=== PATIENT | female | born 1935 | race Hispanic/Latino ===

== ENCOUNTER → 2018-04-06 | Outpatient (CLI) | payer OTHER, MEDICARE ==
[~2018-04-06] MED LIST: AEC81 PO; GLIPIZIDE; INSLAN SQ; INTEGRA; MEFORMIN; PEPTO BISMOL; [UNRECOGNIZED DRUG - OTHER]; cozaar; lipitor; naproxen; nexium; norvasc; prozac; tramadol
== END | disposition home or self-care (01) ==
LOC: RAH 10:05
PROVIDERS: ATTEND Internal Medicine Gastroenterology
DX: R68.81 Early satiety (principal); K30 Functional dyspepsia; R14.0 Abdominal distension (gaseous)
CPT/HCPCS: 78264; A9541

== ENCOUNTER 2018-05-04 08:54 | Day surgery (SDC) | payer OTHER, MEDICARE ==
[~2018-05-04] VITALS: Ht 149.9 cm; Wt 60.7 kg
[~2018-05-04 08:54] MED LIST changes: +AMLO5TAB7 PO; +ATOR20TA65 PO; +ESOM40CA PO; +GLIP1TAB6 PO; -GLIPIZIDE; -INTEGRA; +LOSA50TA2 PO; -MEFORMIN; +MIRT30TA7 PO; +MULT-1296 PO; -PEPTO BISMOL; +SODIUM CHLORIDE 0.9% 1000ML 1,000 ML IV ONE; -[UNRECOGNIZED DRUG - OTHER]; +clobetasol; -cozaar; +iron; -lipitor; -naproxen; -nexium; -norvasc; -prozac; -tramadol
[2018-05-04 09:02] VITALS: BP 119/60
[2018-05-04] MEDS ORDERED: AEC81 PO (09:56)
[2018-05-04] MEDS ORDERED: IRON PO (09:56)
[2018-05-04] MEDS ORDERED: PROPOFOL 10 MG/ML 20ML VIAL IV ONE ×2 (10:37→10:50)
[2018-05-04 11:01] VITALS: BP 159/69
[2018-05-04 11:05] VITALS: BP 162/72
[2018-05-04 11:10] VITALS: BP 167/68
[2018-05-04 11:16] VITALS: BP 156/56
[2018-05-04 11:17] VITALS: BP 152/66
== END 2018-05-04 11:35 | disposition home or self-care (01) ==
LOC: ENDO 08:54 → DAH 08:54 → ENDO 11:35
PROVIDERS: ATTEND Internal Medicine Gastroenterology
DX: K63.5 Polyp of colon (principal); F41.9 Anxiety disorder, unspecified; K64.1 Second degree hemorrhoids; F32.9 Major depressive disorder, single episode, unspecified; E11.9 Type 2 diabetes mellitus without complications; M19.90 Unspecified osteoarthritis, unspecified site; I10 Essential (primary) hypertension; E78.5 Hyperlipidemia, unspecified; Z79.82 Long term (current) use of aspirin; Z79.899 Other long term (current) drug therapy; Z86.73 Personal history of transient ischemic attack (TIA), and cerebral infarction without residual deficits; Z90.710 Acquired absence of both cervix and uterus; Z79.4 Long term (current) use of insulin; Z96.659 Presence of unspecified artificial knee joint; Z88.8 Allergy status to other drugs, medicaments and biological substances
CPT/HCPCS: 45385; 82948 ×2; 88305; 93005; A4606; J2704 ×2; J7030